=== PATIENT | female | born 1965 | race Caucasian/White ===

== ENCOUNTER 2017-01-24 17:53 | Emergency (ER) | payer OTHER, MEDICARE ==
[~2017-01-24] VITALS: Ht 149.9 cm; Wt 65.0 kg
[~2017-01-24 17:53] MED LIST: CLIN1CAP5 PO; LOSA50TA PO; LYRI50CA PO; NAPR500 PO; PRAV20TA2 PO
[2017-01-24 17:58] VITALS: BP 136/92; PULSE 105; RESP 16; TEMP 98.2; O2SAT 96
[2017-01-24] MEDS ORDERED: TETANUS/DIPHTHERIA TOXOID ADULT 0.5 ML VIAL IM ONE (18:45)
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
[2017-01-24] MEDS ORDERED: LIDOCAINE 1%/EPINEPHrine 1:100,000 SOLN 20 ML VIAL INFIL ONE (19:30)
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
[2017-01-24] MEDS ORDERED: CYCL1TAB29 PO (19:40)
--- NOTE | 2017-01-24 20:03 | PD ---
Physical Exam Date Seen by Provider: Jan 24, 2017 Time Seen by Provider: 20:01 Narrative Was asked to see this patient for laceration repair to the right forearm. Please see Dr. Gusman's note for history and physical. Data Data Last Documented VS Vital Signs Date Time Temp Pulse Resp B/P Pulse Ox O2 Delivery O2 Flow Rate FiO2 01/24/17 17:58 98.2 105 16 136/[address] Brain W/O Iv Contrast(Rout) (01/24/17 18:38) Ct Cerv Spine W/O Contrast (01/24/17 18:38) Ct Thor Spine W/O Contrast (01/24/17 18:38) Tetanus/Diphtheria Tox Adult (Tetanus/Di (01/24/17 18:45) Lidocai-Epi 1%-1:100,000 Inj (Xylocaine- (01/24/17 19:30) MDM Medical Record Reviewed: Yes Supervised Visit with KATHLEEN: Yes Procedures Procedure Narrative LACERATION LOCATION: Right middle volar forearm. LENGTH: 3 cm NUMBER OF STITCHES/JENNY: 3 interrupted vertical mattress, one interrupted horizontal mattress, one simple suture REPAIR: The area of the laceration was prepped with Betadine and sterilely draped. The laceration was infiltrated with 5 mL 1% lidocaine with epinephrine. The wound was copiously irrigated and explored without evidence of foreign body, tendon injury or neurovascular injury. The wound was closed using 5-0 Prolene. This was a single layer repair. A sterile dressing was applied. The patient was advised to keep the dressing clean and dry. Patient tolerated the procedure well. Diagnosis Primary Impression: Contusion of head Qualified Code: S00.93XA - Contusion of head, unspecified part of head, initial encounter Additional Impressions: Cervical strain Qualified Code: S16.1XXA - Cervical strain, initial encounter Laceration of right forearm Qualified Code: S51.811A - Laceration of right forearm, initial encounter Strain of thoracic spine Qualified Code: S29.019A - Strain of thoracic spine, initial encounter Referrals: New Hernandez MD (PCP) Patient Instructions: General Instructions, Contusion in Adults (ED) Departure Forms: Tests/Procedures Additional Instruction: Suture removal 10 days Scripts Cyclobenzaprine (Flexeril)10 Mg Tab10 Mg PO TID #30 TAB Ref 0 Prov:MacMahon,Shayan MD 01/24/17 Disposition: 01 DISCHARGE HOME Condition: Stable Romaine Quispe Jan 24, 2017 20:03
[2017-01-24 20:04] VITALS: BP 127/84
== END 2017-01-24 20:44 | disposition home or self-care (01) ==
LOC: PHED 17:53
DX: S00.93XA Contusion of unspecified part of head, initial encounter (principal); S16.1XXA Strain of muscle, fascia and tendon at neck level, initial encounter; S29.019A Strain of muscle and tendon of unspecified wall of thorax, initial encounter; S51.811A Laceration without foreign body of right forearm, initial encounter; I10 Essential (primary) hypertension; J45.909 Unspecified asthma, uncomplicated; V43.52XA Car driver injured in collision with other type car in traffic accident, initial encounter; Y92.410 Unspecified street and highway as the place of occurrence of the external cause; Z23 Encounter for immunization
CPT/HCPCS: 12002; 70450; 72125; 72128; 90471; 90714

== ENCOUNTER 2017-05-28 08:44 | Emergency (ER) | payer OTHER ==
[~2017-05-28] VITALS: Ht 149.9 cm; Wt 53.5 kg
[~2017-05-28 08:44] MED LIST changes: -CLIN1CAP5 PO; +CYCL1TAB29 PO; -LYRI50CA PO; -NAPR500 PO
[2017-05-28 08:46] VITALS: BP 185/111; PULSE 100; RESP 20; TEMP 97.8; O2SAT 98
--- NOTE | 2017-05-28 09:34 | PD ---
HPI Chief Complaint: Injury Time Seen by Provider: 09:33 Travel History International Travel<30 days: No Contact w/Intl Traveler<30days: No Traveled to known affect area: No History of Present Illness HPI 51-year-old female presents emergency Department with complaint of left forearm pain and left wrist pain since night after twisting her ankle and falling onto a step landing on her left arm. Denies ankle pain. Denies hitting her head or loss of consciousness. Denies neck pain or back pain. Denies paresthesias, loss of sensation to the affected extremity. Denies fever , vomiting. Has not taken any medications to alleviate her symptoms. Has applied ice to the affected extremity for symptom management. No known allergies. Has no other medical complaints. No other modifying factors or associated signs and symptoms. PFSH Past Medical History Hx Anticoagulant Therapy: No Cardiovascular Problems: No High Cholesterol: Yes Chemotherapy: No Cerebrovascular Accident: No Diabetes: No Hypertension: Yes Respiratory: No ?: Not Past Surgical History Cholecystectomy: Yes Hysterectomy: No Joint Replacement: Yes (bilat. hip replacement) Social History Alcohol Use: Yes (occassionally ) Tobacco Use: No (quit 5 months ago) Substance Use: No Allergies-Medications (Allergen,Severity, Reaction): Coded Allergies: No Known Allergies (Unverified , 01/24/17) Reported Meds & Prescriptions Reported Meds & Active Scripts Active Ibuprofen 800 Mg Tab 800 Mg PO Q8HR PRN Flexeril (Cyclobenzaprine HCl) 10 Mg Tab 10 Mg PO TID Reported Losartan (Losartan Potassium) 50 Mg Tab 50 Mg PO DAILY Pravastatin 20 Mg Tab 20 Mg PO DAILY Review of Systems Except as stated in HPI: all other systems reviewed are Neg Physical Exam Narrative GENERAL: Well-nourished, well-developed patient, in no acute distress; tearful SKIN: Warm and dry. HEAD: Atraumatic. Normocephalic. EYES: Pupils equal and round. No scleral icterus. No injection or drainage. ENT: Mucosa pink and moist. Airway patent. NECK: Trachea midline. CARDIOVASCULAR: Regular rate. RESPIRATORY: No accessory muscle use. GASTROINTESTINAL: Flat. MUSCULOSKELETAL: Left wrist with tenderness on palpation; no erythema ; mild edema; decreased range of motion. Left hand with full range of motion at all joints. Left forearm is without edema, ecchymosis, erythema; with tenderness on palpation; no obvious deformity. Left upper extremity is supple and non- tense with 2+ radial pulse and sensory intact. No obvious deformities. No clubbing. No cyanosis. NEUROLOGICAL: Awake and alert. Oriented 3. No obvious cranial nerve deficits. Motor grossly within normal limits. Normal speech. PSYCHIATRIC: Appropriate mood and affect; insight and judgment normal. Data Data Last Documented VS Vital Signs Date Time Temp Pulse Resp B/P (MAP) Pulse Ox O2 Delivery O2 Flow Rate FiO2 05/28/17 10:27 05/28/17 08:46 97.8 100 20 98 Room Air Orders Orders Forearm (2vws) (05/28/17 09:32) Wrist, Complete ([id number]) (05/28/17 09:32) Ibuprofen (Motrin) (05/28/17 09:45) Splint Or Brace Apply/Monitor (05/28/17 10:23) [facility] Medical Decision Making Medical Screen Exam Complete: Yes Emergency Medical Condition: Yes Medical Record Reviewed: Yes Differential Diagnosis Wrist sprain, wrist fracture, forearm fracture, fall Narrative Course 51-year-old female with left forearm injury and left wrist injury from mechanical fall . Denies hitting her head or loss of consciousness. Denies neck pain or back pain. Patient has high blood pressure and takes to blood pressure medications, which she has not taken this morning. She is asymptomatic. Instructed patient to take medications when she arrives home and she verbalizes understanding and agreement. Left wrist x-ray ordered. Ibuprofen ordered. 1025: Left forearm and left wrist x-ray with no acute fracture. Velcro wrist splint provider for support. Ibuprofen prescribed for home. Instructed patient to follow up with primary care provider. Patient verbalizes understanding and agreement with treatment plan. Patient is medically cleared and stable for discharge. Discussed reasons to return to the emergency department. Patient agrees with treatment plan. The patients vital signs are stable and the patient is stable for outpatient follow-up and treatment. Patient discharged home, stable and in no acute distress. Diagnosis Primary Impression: Injury of left wrist Qualified Codes: S69.92XA - Unspecified injury of left wrist, hand and finger( s), initial encounter Referrals: Primary Care Physician Patient Instructions: General Instructions, Wrist Injury (ED), Wrist Sprain (ED ) Departure Forms: Tests/Procedures, Work Release Enter return to work date: Jun 04, 2017 Additional Instructions: Tylenol or ibuprofen as directed and as needed to reduce pain Rest, ice, compress, and elevate extremity to decrease pain and inflammation J Carlos wrap for support Wrist Splint for support Avoid aggravating activity; increase activity as tolerated Follow-up with primary care provider Return to the emergency department immediately with worsening symptoms Med/Other Pt SpecificInfo: Prescription(s) given Scripts Ibuprofen (Ibuprofen) 800 Mg Tab 800 MG PO Q8HR Y for PAIN, #30 TAB 0 Refills Prov: Lindy Ann 05/28/17 Disposition: 01 DISCHARGE HOME Condition: Stable Lindy Ann May 28, 2017 09:34
[2017-05-28] MEDS ORDERED: IBUPROFEN 800 MG TAB PO ONE (09:45)
--- NOTE | 2017-05-28 10:15 | RADRPT ---
EXAM DATE/TIME: 05/28/2017 09:54 [facility] COMPARISON: No previous studies available for comparison. INDICATIONS : Left arm pain after falling down the stairs. MEDICAL HISTORY : None. SURGICAL HISTORY : None. ENCOUNTER: Initial ACUITY: 2 days PAIN SCORE: 8/10 LOCATION: Left lateral Forearm FINDINGS: Two view examination of the left forearm demonstrates no evidence of fracture or dislocation. Bony m ineralization is normal. The soft tissue structures are intact. CONCLUSION: No acute fracture. Omar Strickland MD on May 28, 2017 at 10:13 Board Certified Radiologist. This report was verified electronically.
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
[2017-05-28] MEDS ORDERED: IBUP800T23 PO (10:23)
[2017-05-28 10:35] VITALS: BP 118/84; PULSE 88; RESP 17; O2SAT 97
[2017-05-28] MEDS ORDERED: MORP1TAB24 PO (10:43)
[2017-05-28] MEDS ORDERED: OXYC-395 PO (10:43)
== END 2017-05-28 10:38 | disposition home or self-care (01) ==
LOC: NEPK 08:44
DX: S69.92XA Unspecified injury of left wrist, hand and finger(s), initial encounter (principal); M79.632 Pain in left forearm; I10 Essential (primary) hypertension; E78.00 Pure hypercholesterolemia, unspecified; Z87.891 Personal history of nicotine dependence; W19.XXXA Unspecified fall, initial encounter; X50.1XXA Overexertion from prolonged static or awkward postures, initial encounter
CPT/HCPCS: 73090; 73110; 99283; L3908